=== PATIENT | female | born 2000 | race Caucasian/White ===

== ENCOUNTER 2024-10-04 07:07 | Day surgery (SDC) | payer MEDICAID ==
[2024-09-30 14:45] LABS: BASOPHILS # (AUTO) 0.1 X10'3 (0-0.2); BASOPHILS % (AUTO) 0.7 % (0-1); EOSINOPHILS # (AUTO) 0.2 X10'3 (0-0.9); EOSINOPHILS % (AUTO) 2.1 % (0-6); HEMATOCRIT 44.6 % (35.0-45.0); HEMOGLOBIN 15.1 g/dl (12.0-16.0); LYMPHOCYTES # (AUTO) 2.6 X10'3 (1.1-4.8); LYMPHOCYTES % (AUTO) 27.4 % (21-51); MEAN CORPUSCULAR HEMOGLOBIN 31.7 PG (27.0-31.0); MEAN CORPUSCULAR HGB CONC 33.8 g/dL (33.0-36.5); MEAN CORPUSCULAR VOLUME 93.8 FL (78-98); MEAN PLATELET VOLUME 7.9 FL (7.4-10.4); MONOCYTES # (AUTO) 0.7 X10'3 (0-0.9); MONOCYTES % (AUTO) 7.6 % (2-12); NEUTROPHILS # (AUTO) 5.9 X10'3 (1.8-7.7); NEUTROPHILS % (AUTO) 62.2 % (42-75); PLATELET COUNT 304 X10'3 (140-440); RED BLOOD COUNT 4.75 X10'6 (4.20-5.60); WHITE BLOOD COUNT 9.5 X10'3 (4.5-11.0)
[2024-09-30 15:02] LABS: ALANINE AMINOTRANSFERASE 15 U/L (12-78); ALBUMIN 3.9 G/DL (3.4-5.0); ALKALINE PHOSPHATASE 81 IU/L (46-116); ANION GAP 9 (8-16); ASPARTATE AMINO TRANSFERASE 13 U/L (10-37); BILIRUBIN,TOTAL 0.5 MG/DL (0.1-1.0); BLOOD UREA NITROGEN 9 MG/DL (7-18); BUN/CREATININE RATIO 10.3 (10.0-20.0); CALCIUM 9.4 MG/DL (8.5-10.1); CHLORIDE 104 MMOL/L (99-107); CREATININE 0.87 MG/DL (0.40-0.90); GLUCOSE 111 MG/DL (70-104); POTASSIUM 3.6 MMOL/L (3.5-5.1); SODIUM 139 MMOL/L (135-145); TOTAL CARBON DIOXIDE 26.4 MMOL/L (24-32); TOTAL PROTEIN 7.9 G/DL (6.4-8.2); eGFR 80 ML/MIN
[2024-09-30 15:25] LABS: HCG SERUM QL NEGATIVE
[2024-10-04] VITALS (7 sets, daily range): BP systolic 107–116; BP diastolic 69–83; PULSE 53–74; RESP 15–21; TEMP 99; O2SAT 97–100
[~2024-10-04] VITALS: Ht 154.9 cm; Wt 55.9 kg
[2024-10-04] MEDS: ceFAZolin 2gm in dextrose, iso 50 ML IV ONE (05:30)
[~2024-10-04 07:07] MED LIST: BUPIVAcaine/PF 2.5mg/ml (0.25%) 10ml vial ONE; LIDOcaine 2% (20mg/ml) 5ml vial ONE; PANT20TA18 PO; VALA100031 PO
[2024-10-04] MEDS: famotidine 20mg tablet PO ONE (07:34)
[2024-10-04] MEDS: ringers solution, lacted 1,000 ML IV SCH (07:34)
[2024-10-04] MEDS ORDERED: labetalol 20mg/4ml (5mg/ml) syringe IV PRN (07:45)
[2024-10-04] MEDS ORDERED: morphine 2 MG/ML inj. syringe IV PRN (07:45)
[2024-10-04] MEDS ORDERED: fentaNYL/PF 50MCG/1 ML 2ML syringe IV PRN ×2 (07:45)
[2024-10-04] MEDS ORDERED: ondansetron/PF 4mg/2ml inj IV PRN (07:45)
[2024-10-04] MEDS ORDERED: ringers solution, lacted 1,000 ML IV SCH (07:45)
[2024-10-04] MEDS ORDERED: morphine 4 MG/ML inj SYRINge IV PRN (07:45)
[2024-10-04] MEDS ORDERED: fentaNYL/PF 50MCG/1 ML 2ML syringe ONE (08:57)
[2024-10-04] MEDS ORDERED: MIDAZolam 1 MG/ML 5ML VIAL ONE (08:58)
== END 2024-10-04 09:58 | disposition home or self-care (01) ==
LOC: PAS 07:07
PROVIDERS: ATTEND Orthopaedic Surgery Hand Surgery
DX: G56.02 Carpal tunnel syndrome, left upper limb (principal); Z79.899 Other long term (current) drug therapy; Z88.8 Allergy status to other drugs, medicaments and biological substances; Z98.890 Other specified postprocedural states
CPT/HCPCS: 29848; 36415; 80053; 82948; 84703; 85025; J0690; J2003; J2250; J3010; J3490; J7030; J7120; Z7506; Z7512; A4215; A6449; A7000